=== PATIENT | female | born 1960 | race Caucasian/White ===

== ENCOUNTER 2017-07-26 12:45 | Inpatient (IN) | payer MEDICAID, OTHER ==
[2017-07-26] MEDS: LORazepam 1 MG TAB PO (13:24)
[2017-07-26 14:14] LABS: AMPHETAMINES LEVEL URINE NEGATIVE (NEGATIVE); BARBITURATES URINE NEGATIVE (NEGATIVE); BENZODIAZEPINES URINE NEGATIVE (NEGATIVE); CANNABINOIDS URINE NEGATIVE (NEGATIVE); COCAINE METABOLITE URINE NEGATIVE (NEGATIVE); METHADONE URINE NEGATIVE (NEGATIVE); OPIATES URINE NEGATIVE (NEGATIVE); PHENCYCLIDINE URINE NEGATIVE (NEGATIVE)
[2017-07-26] MEDS: METOPROLOL TART 50 MG TAB PO (15:00)
[2017-07-26] MEDS: CHLORTHALIDONE 12.5MG PER 1/2 TABLET PO (15:13)
[2017-07-26 15:25] LABS: ACETAMINOPHEN LEVEL < 2.0 UG/ML (10.0-30.0); ALBUMIN 4.3 GM/DL (3.2-5.2); ALBUMIN/GLOBULIN RATIO 1.48 (1.00-1.93); ALKALINE PHOSPHATASE 97 U/L (45-117); ALT/SGPT 27 U/L (12-78); ANION GAP 10 MEQ/L (8-16); AST/SGOT 30 U/L (7-37); BILIRUBIN,DIRECT 0.2 MG/DL (0.0-0.2); BILIRUBIN,TOTAL 0.9 MG/DL (0.2-1.0); BLOOD UREA NITROGEN 27 MG/DL (7-18); CALCIUM LEVEL 8.7 MG/DL (8.5-10.1); CARBON DIOXIDE LEVEL 25 MEQ/L (21-32); CHLORIDE LEVEL 106 MEQ/L (98-107); CREATININE FOR GFR 0.87 MG/DL (0.55-1.30); GLOMERULAR FILTRATION RATE > 60.0 (>51); GLUCOSE, FASTING 91 MG/DL (70-100); POTASSIUM SERUM 4.1 MEQ/L (3.5-5.1); SALICYLATE LEVEL < 1.7 MG/DL (5.0-30.0); SODIUM LEVEL 141 MEQ/L (136-145); TOTAL PROTEIN 7.2 GM/DL (6.4-8.2)
[2017-07-26 15:29] LABS: ETHYL ALCOHOL (ETHANOL) < 0.003 % (0.000-0.010)
[2017-07-26 15:34] LABS: HEMATOCRIT 42.8 % (36.0-47.0); HEMOGLOBIN 14.6 g/dl (12.0-16.0); MEAN CORPUSCULAR HEMOGLOBIN 30.3 pg (27.0-33.0); MEAN CORPUSCULAR HGB CONC 34.1 g/dl (32.0-36.5); MEAN CORPUSCULAR VOLUME 88.8 fl (80.0-96.0); PLATELET COUNT, AUTOMATED 212 10^3/uL (150-450); RED BLOOD COUNT 4.82 10^6/uL (4.00-5.40); RED CELL DISTRIBUTION WIDTH 12.7 % (11.5-14.5); WHITE BLOOD COUNT 13.4 10^3/uL (4.0-10.0)
[2017-07-26] MEDS: ACETAMINOPHEN TAB 650MG DOSE (2X325MG) PO (17:20)
[2017-07-26] MEDS ORDERED: MOM 30ML SUSPENSION UDC PO (17:30)
[2017-07-26] MEDS ORDERED: MAALOX 30 ML SUSP *UDC PO (17:30)
[2017-07-26] MEDS ORDERED: traZODone 50 MG TAB PO (17:30)
[2017-07-26] MEDS ORDERED: OLANZapine ORAL DISINTEGRATING TAB 5MG PO (17:30)
[2017-07-27] MEDS: ACETAMINOPHEN TAB 650MG DOSE (2X325MG) PO (06:54)
[2017-07-27 08:04] LABS: AMORPHOUS SEDIMENT RFX SMALL (NEGATIVE); KETONE, URINE AUTO RFX 1+ mg/dL (NEGATIVE); MUCUS, URINE RFX MODERATE (NEGATIVE); NITRITE, URINE AUTO RFX NEGATIVE (NEGATIVE); RBC, URINE AUTO RFX 32 /HPF (0-3); SPECIFIC GRAVITY UR AUTO RFX 1.017 (1.002-1.035); SQUAM EPITHELIAL CELL UR AURFX 2 /HPF (0-6); TRANSITIONAL EPITHELIAL AU RFX 1 /HPF
[2017-07-27 08:21] LABS: LEUKOCYTE ESTERASE UR AUTO RFX 2+ (NEGATIVE); WBC, URINE AUTO RFX 70 /HPF (0-3)
[2017-07-27] MEDS: SERTRALINE HCL 25 MG TABLET PO (13:32)
[2017-07-27] MEDS: AUGMENTIN 875 MG TAB PO (22:44)
[2017-07-28 06:57] LABS: BASO % 0.3 % (0.0-1.0); EOS % 0.6 % (0.0-3.0); HEMATOCRIT 38.1 % (36.0-47.0); HEMOGLOBIN 12.8 g/dl (12.0-16.0); IMMATURE GRANULOCYTE % 0.5 % (0-3.0); LYMPH # 1.7 10^3/uL (1.5-4.5); LYMPH % 27.4 % (24.0-44.0); MEAN CORPUSCULAR HGB CONC 33.6 g/dl (32.0-36.5); MEAN CORPUSCULAR VOLUME 89.4 fl (80.0-96.0); MONO # 0.6 10^3/uL (0.0-0.8); MONO % 9.3 % (0.0-5.0); NEUTROPHILS # 3.8 10^3/uL (1.8-7.7); NEUTROPHILS % 61.9 % (36.0-66.0); PLATELET COUNT, AUTOMATED 166 10^3/uL (150-450); RED BLOOD COUNT 4.26 10^6/uL (4.00-5.40); WHITE BLOOD COUNT 6.2 10^3/uL (4.0-10.0)
[2017-07-28 07:13] LABS: ALBUMIN 3.4 GM/DL (3.2-5.2); ALKALINE PHOSPHATASE 77 U/L (45-117); ALT/SGPT 33 U/L (12-78); ANION GAP 7 MEQ/L (8-16); AST/SGOT 35 U/L (7-37); BILIRUBIN,TOTAL 0.7 MG/DL (0.2-1.0); BLOOD UREA NITROGEN 21 MG/DL (7-18); CALCIUM LEVEL 8.3 MG/DL (8.5-10.1); CARBON DIOXIDE LEVEL 28 MEQ/L (21-32); CHLORIDE LEVEL 106 MEQ/L (98-107); GLOMERULAR FILTRATION RATE > 60.0 (>51); GLUCOSE, FASTING 96 MG/DL (70-100); POTASSIUM SERUM 3.8 MEQ/L (3.5-5.1); SODIUM LEVEL 141 MEQ/L (136-145); TOTAL PROTEIN 6.5 GM/DL (6.4-8.2)
[2017-07-28] MEDS: SERTRALINE HCL 25 MG TABLET PO (08:19)
[2017-07-28] MEDS: AUGMENTIN 875 MG TAB PO ×2 (08:19→21:42)
[2017-07-29] MEDS: SERTRALINE HCL 50 MG TAB PO (08:40)
[2017-07-29] MEDS: AUGMENTIN 875 MG TAB PO ×2 (08:40→21:30)
[2017-07-29] MEDS: guaiFENesin SYRUP 200 MG/10 ML UDC PO (13:25)
[2017-07-30] MEDS: SERTRALINE HCL 50 MG TAB PO (08:18)
[2017-07-30] MEDS: AUGMENTIN 875 MG TAB PO ×2 (08:18→21:09)
[2017-07-31] MEDS: AUGMENTIN 875 MG TAB PO (08:29)
[2017-07-31] MEDS: SERTRALINE HCL 50 MG TAB PO (08:29)
== END 2017-07-31 13:45 | disposition home or self-care (01) | DRG 881 ==
LOC: M ED 12:45 → M ED INP 17:20 → M PSY 18:10
DX: F32.9 Major depressive disorder, single episode, unspecified (principal); J20.9 Acute bronchitis, unspecified

== ENCOUNTER → 2017-12-16 | Outpatient (REF) ==
[2017-12-18 08:11] LABS: RUBEOLA IgG ANTIBODY 49.2 AU/mL (Immune >29.9)
== END ==
LOC: M LAB 15:16
DX: Z00.00 Encounter for general adult medical examination without abnormal findings (principal)

== ENCOUNTER → 2017-12-25 | Outpatient (REF) | payer MEDICAID, OTHER ==
[2017-12-25 13:43] LABS: ANION GAP 2 MEQ/L (8-16); BLOOD UREA NITROGEN 17 MG/DL (7-18); CALCIUM LEVEL 9.1 MG/DL (8.5-10.1); CARBON DIOXIDE LEVEL 32 MEQ/L (21-32); CHLORIDE LEVEL 106 MEQ/L (98-107); CREATININE FOR GFR 1.04 MG/DL (0.55-1.30); GLOMERULAR FILTRATION RATE 58.4 (>51); GLUCOSE, FASTING 66 MG/DL (70-100); POTASSIUM SERUM 4.9 MEQ/L (3.5-5.1); SODIUM LEVEL 140 MEQ/L (136-145)
== END ==
LOC: M LABDRWAD 12:02
DX: I10 Essential (primary) hypertension (principal)
CPT/HCPCS: 80048

== ENCOUNTER → 2019-08-03 | Outpatient (CLI) | payer BC ==
[~2019-08-03] MED LIST: ACET1TAB55 PO; ACET300T PO; ACET500C PO; AMOX875T2 PO; BACT800T5 PO; CIPR-249 PO; COLA100C5 PO; PERC5TAB12 PO; PYRI200T2 PO; SERT-141 PO
--- NOTE | 2019-08-03 08:32 | REP ---
CT ABDOMEN AND PELVIS WITHOUT IV OR ORAL CONTRAST: HISTORY: Calculus of kidney. Comparison CT study December 25, 2015. CT FINDINGS: Preliminary digital triage registered nurse radiograph is unremarkable. The lung bases are clear on axial CT images. The liver and the spleen are normal in size, homogeneous in texture. No abnormal adrenal lesion is seen. No abnormality is noted in the gallbladder or the pancreas. There is a cyst in the upper pole right kidney which measures 2.7 cm in diameter. This is larger than on previous scan. No renal mass lesion is observed. There are numerous bilateral intrarenal calculi. There is no evidence of hydronephrosis on either side. The largest calculus in the right kidney is in the lower pole measuring 7 mm. This is larger than on previous study. The largest calculus in the left kidney is at the mid pole level. This measures 7 mm also. This calculus is larger than previous study as well. No ureteral calculus is observed. No bladder calculus is seen. Uterus is surgically absent. The appendix appears to be surgically absent as well as there is a suture line along the cecum although the patient's historical questionnaire does not attest to this. No abdominal wall defect is seen. No bony destructive lesion is seen. IMPRESSION: Bilateral intrarenal nephrolithiasis. 2.7 cm cyst upper pole right kidney. No acute intra-abdominal abnormality. Electronically Signed by Masoud Cross MD 08/03/2019 09:26 A
== END ==
LOC: M RAD 07:18
PROVIDERS: ATTEND Nurse Practitioner Family
DX: N20.0 Calculus of kidney (principal)

== ENCOUNTER → 2019-08-04 | Outpatient (CLI) | payer BC ==
--- NOTE | 2019-08-04 14:20 | REPMRS ---
Patient History The patient states she had a clinical breast exam in July 2019. Family history of unknown cancer at age 60 in father. Benign excisional biopsy of the right breast. Took hormonal contraceptives for 15 years. 3D TOMOSYNTHESIS WAS PERFORMED. [facility]%. Digital Woman Screen Mammo: August 04, 2019 - Exam #: [id number] Bilateral CC and MLO view(s) were taken. Technologist: RT Mellissa Prior study comparison: March 02, 2014, bilateral bilat screen digital mammo, performed at [facility] ([place]). July 13, 2012, bilateral bilat screen digital mammo, performed at [facility] ([facility]). FINDINGS: The breast tissue is heterogeneously dense. This may lower the sensitivity of mammography. There has been no change in the appearance of the mammogram from the prior studies. There is a moderate amount of residual fibroglandular tissue which is fairly symmetric. There is no interval development of dominant mass, areas of architectural distortion, or clustered microcalcification typical of malignancy. Assessment: BI-RADS/ACR category 1 mammogram. Negative Mammogram. Recommendation Routine screening mammogram in 1 year (for women over age 40). This mammogram was interpreted with the aid of an FDA-approved computer-aided dectection system. Electronically Signed By: Pascual Oconnor MD 08/04/19 1208
== END ==
LOC: M WHC 12:46
PROVIDERS: ATTEND Internal Medicine
DX: Z12.31 Encounter for screening mammogram for malignant neoplasm of breast (principal)

== ENCOUNTER → 2019-08-11 | Outpatient (REF) | payer BC ==
[~2019-08-11] MED LIST changes: +AMLO5TAB6 PO; +BENA10TA PO
[2019-08-11 12:48] LABS: CALCIUM LEVEL 9.4 MG/DL (8.5-10.1); CREATININE FOR GFR 1.03 MG/DL (0.55-1.30); GLOMERULAR FILTRATION RATE 58.6 (>51); POTASSIUM SERUM 4.7 MEQ/L (3.5-5.1)
[2019-08-11 12:59] LABS: APPEARANCE, URINE CLEAR (CLEAR); BACTERIA, URINE AUTO NEGATIVE (NEGATIVE); BILIRUBIN, URINE AUTO NEGATIVE (NEGATIVE); BLOOD, URINE BLOOD 1+ (NEGATIVE); COLOR, URINE YELLOW (YELLOW); GLUCOSE, URINE (UA) AUTO NEGATIVE (NEGATIVE); KETONE, URINE AUTO NEGATIVE (NEGATIVE); LEUKOCYTE ESTERASE, URINE AUTO NEGATIVE (NEGATIVE); MUCUS, URINE SMALL (NEGATIVE); NITRITE, URINE AUTO NEGATIVE (NEGATIVE); PROTEIN, URINE AUTO NEGATIVE (NEGATIVE); RBC, URINE AUTO 18 /HPF (0-3); SPECIFIC GRAVITY URINE AUTO 1.012 (1.002-1.035); SQUAMOUS EPITHELIAL CELL UR AU 0 /HPF (0-6); UROBILINOGEN, URINE AUTO 0.2 mg/dL (0.0-2.0); WBC, URINE AUTO 1 /HPF (0-3)
[2019-08-11 13:03] LABS: HEMATOCRIT 44.5 % (36.0-47.0); HEMOGLOBIN 14.3 g/dl (12.0-15.5); MEAN CORPUSCULAR HEMOGLOBIN 30.2 pg (27.0-33.0); MEAN CORPUSCULAR HGB CONC 32.1 g/dl (32.0-36.5); MEAN CORPUSCULAR VOLUME 93.9 fl (80.0-96.0); RED BLOOD COUNT 4.74 10^6/uL (4.00-5.40); WHITE BLOOD COUNT 6.3 10^3/uL (4.0-10.0)
[2019-08-11 13:05] LABS: INR 1.02; PROTHROMBIN TIME 13.1 SECONDS (11.8-14.0)
[2019-08-11 13:06] LABS: PARTIAL THROMBOPLASTIN TIME 29.6 SECONDS (25.0-38.4)
== END ==
LOC: M SFHCADAM 08:32 → M LABSMT 08:32
PROVIDERS: ATTEND Nurse Practitioner Women's Health
DX: Z01.818 Encounter for other preprocedural examination (principal); N20.0 Calculus of kidney

== ENCOUNTER 2019-08-12 08:54 | Day surgery (SDC) | payer BC ==
[~2019-08-12] VITALS: Ht 160 cm; Wt 65.3 kg
[~2019-08-12 08:54] MED LIST changes: +LR 1,000 ML IV ONE; +ceFAZolin SOD 2 GM in IV 1 EA IV ONE
[2019-08-12] MEDS ORDERED: propofoL 500 MG/50 ML VIAL As Ordered ONE (10:26)
[2019-08-12] MEDS ORDERED: LIDOCAINE 2% INJ 100 MG/5 ML SDV (FOR ANES.) As Ordered ONE (10:26)
--- NOTE | 2019-08-12 11:25 | REP ---
KUB ABDOMEN AND PELVIS: Two KUB films of the abdomen and pelvis are performed. Bowel gas pattern is normal. There are multiple subcentimeter calcifications overlying both renal shadows consistent with multiple bilateral intrarenal calculi. Largest on the left is 7 mm in the mid aspect of the left kidney. Largest on the right is in the lower pole approximately 6 mm in diameter. There is partial sacralization of the L5 indicating transitional vertebral body. IMPRESSION: Multiple subcentimeter intrarenal calculi bilaterally. Electronically Signed by Pascual Oconnor MD 08/12/2019 04:51 P
[2019-08-12] MEDS ORDERED: propofoL 200 MG/20 ML VIAL As Ordered ONE (12:03)
[2019-08-12 13:30] VITALS: BP 136/70
--- NOTE | 2019-08-12 14:13 | RO ---
DATE OF PROCEDURE: 08/12/2019 PREPROCEDURE DIAGNOSIS: Bilateral kidney stones. POSTPROCEDURE DIAGNOSIS: Bilateral kidney stones. PROCEDURE: Bilateral extracorporeal shockwave lithotripsy. SURGEON: Dr. Alon Soto SCRAP PICKER: None. ANESTHESIA: Monitored anesthesia care (MAC). OPERATIVE INDICATIONS: This is a 59-year-old female who was found to have multiple bilateral non-obstructing kidney stones. She was brought to the operating room today for treatment. DESCRIPTION OF PROCEDURE: The patient was brought to the operating room and MAC anesthesia was administered. Prophylactic antibiotics were infused. She was then placed in the supine position in preparation for right sided extracorporeal shockwave lithotripsy first. Fluoroscopy was utilized to monitor the stone position and fragmentation throughout the procedure. Shockwaves were then delivered to the largest of the right sided kidney stones ungated. There were no arrhythmias. The stones did appear to fragment well. After 2500 shocks, the patient was then repositioned for a left sided extracorporeal shockwave lithotripsy. Of note, the patient had at 4 or 5 stones in the left side with the largest ones in the mid and lower pole calyces. These stones were also targeted using fluoroscopy. Shockwaves were then delivered to them ungated. After a total of 2500 shocks were delivered, this marked the conclusion of the procedure. The patient was then awakened from anesthesia and transported to the recovery room in stable condition. Estimated blood loss 0 mL. Complications: None. Specimens: None. Plan: The patient will followup in the clinic in a few weeks with imaging prior to assess for residual stone burden.
== END 2019-08-12 13:44 | disposition home or self-care (01) ==
LOC: M SDC 08:54
PROVIDERS: ATTEND Urology
DX: N20.0 Calculus of kidney (principal); I10 Essential (primary) hypertension; Z79.899 Other long term (current) drug therapy; Z87.442 Personal history of urinary calculi
CPT/HCPCS: 50590; 74018; J0690

== ENCOUNTER → 2019-09-08 | Outpatient (CLI) | payer BC ==
[~2019-09-08] MED LIST changes: -LR 1,000 ML IV ONE; -ceFAZolin SOD 2 GM in IV 1 EA IV ONE
--- NOTE | 2019-09-08 17:09 | REP ---
Clinical: Kidney stone. Technique: Single supine view of the abdomen and pelvis. Comparison: 08/12/2019. Findings: Bilateral intrarenal calculi measuring up to approximately 4 mm are suggested. No obvious ureteral or bladder calculi noted. Bowel gas pattern is nonspecific. No organomegaly. No foreign body. Skeletal structures are intact. Impression: Bilateral nephroliths measuring up to approximately 4 mm. Electronically Signed by Juan Su MD 09/08/2019 05:00 P
== END ==
LOC: M RAD 16:20
PROVIDERS: ATTEND Nurse Practitioner Women's Health
DX: N20.0 Calculus of kidney (principal)

== ENCOUNTER → 2019-09-09 | Outpatient (REF) | payer BC | LOC: M SMT 16:31 | PROVIDERS: ATTEND Nurse Practitioner Family | DX: N20.0 Calculus of kidney (principal) ==

== ENCOUNTER → 2020-03-09 | Outpatient (CLI) | payer BC ==
[~2020-03-09] MED LIST changes: +AMLO1TAB24 PO; -AMLO5TAB6 PO
--- NOTE | 2020-03-09 16:59 | REP ---
INDICATION: CALCULUS OF KIDNEY COMPARISON: 09/08/2019 TECHNIQUE: Supine view of the abdomen and pelvis. FINDINGS: Punctate bilateral intrarenal calculi form (left greater than right) are again suggested and similar to prior examination. Bowel gas pattern is nonspecific. No organomegaly. No foreign body. Skeletal structures demonstrate age-related changes. IMPRESSION: Suggest small multiple bilateral nephroliths <Electronically signed by Juan Su > 03/09/20 0359
== END ==
LOC: M RAD 16:26
PROVIDERS: ATTEND Nurse Practitioner Family
DX: N20.0 Calculus of kidney (principal)

== ENCOUNTER → 2021-10-08 | Outpatient (CLI) | payer BC | LOC: M WHC 08:03 | PROVIDERS: ATTEND Internal Medicine | DX: Z12.31 Encounter for screening mammogram for malignant neoplasm of breast (principal); Z78.0 Asymptomatic menopausal state ==

== ENCOUNTER → 2022-10-15 | Outpatient (CLI) | payer BC | LOC: M PLAIMG 10:39 | PROVIDERS: ATTEND Internal Medicine Nephrology | DX: N20.0 Calculus of kidney (principal) ==

== ENCOUNTER → 2023-09-23 | Outpatient (CLI) | payer BC | LOC: M WHC 12:51 | PROVIDERS: ATTEND Internal Medicine | DX: Z12.31 Encounter for screening mammogram for malignant neoplasm of breast (principal) ==

== ENCOUNTER 2023-12-10 08:18 | Day surgery (SDC) | payer BC ==
[~2023-12-10] VITALS: Ht 160 cm; Wt 76.5 kg
[~2023-12-10 08:18] MED LIST changes: +CARV6.25 PO; +LIDOCAINE 3.5 % 1ML OPHTH TOPICAL GEL OU ONE; +MIDAZOLAM INJ 2MG/2ML VIAL As Ordered ONE; +PHENYLEPHRINE 10% OPHTH SOL 5ML OD PRN; +POTA10808 PO; +fentaNYL 100 MCG/2 ML INJECTION As Ordered ONE
[2023-12-10] MEDS: PHENYLEPHRINE 2.5% OPHTH SOL 2ML OD SCH (08:47)
[2023-12-10] MEDS: OFLOXACIN 0.3 % (OCUFLOX) OPTH SOL 5ML OD ONE (08:47)
[2023-12-10] MEDS: TROPICAMIDE 1% OPHTH SOLN 15ML OD SCH (08:47)
[2023-12-10] MEDS: ATROPINE SULFATE 1% OPHTH SOLN 2ML BTL OD SCH (08:47)
[2023-12-10] MEDS: LIDOCAINE 1% SDV 5ML VIAL As Ordered ONE (10:18)
[2023-12-10] MEDS: CEFUROXIME 1MG/0.1ML INTRACAMERAL INJ As Ordered ONE (10:18)
[2023-12-10] MEDS: BSS IRRIG/VANCO(10MG)/TOBRA(5MG)/EPINEPH(1:1000-0.5CC)500ML BAG-ORONLY As Ordered ONE (10:19)
[2023-12-10 10:37] VITALS: BP 99/57; TEMP 97.3; O2SAT 94
== END 2023-12-10 11:06 | disposition home or self-care (01) ==
LOC: M SDC 08:18
PROVIDERS: ATTEND Ophthalmology
DX: H25.11 Age-related nuclear cataract, right eye (principal); I10 Essential (primary) hypertension; K21.9 Gastro-esophageal reflux disease without esophagitis; Z79.899 Other long term (current) drug therapy
CPT/HCPCS: 66984; 92015; J0697; J2250; J3010; V2788

== ENCOUNTER 2023-12-17 07:39 | Day surgery (SDC) | payer BC ==
[~2023-12-17] VITALS: Ht 160 cm; Wt 76.1 kg
[~2023-12-17 07:39] MED LIST changes: -LIDOCAINE 3.5 % 1ML OPHTH TOPICAL GEL OU ONE; -MIDAZOLAM INJ 2MG/2ML VIAL As Ordered ONE; -PHENYLEPHRINE 10% OPHTH SOL 5ML OD PRN; +PHENYLEPHRINE 10% OPHTH SOL 5ML OS PRN; -fentaNYL 100 MCG/2 ML INJECTION As Ordered ONE
[2023-12-17] MEDS: ATROPINE SULFATE 1% OPHTH SOLN 2ML BTL OS SCH (09:15)
[2023-12-17] MEDS: LIDOCAINE 3.5 % 1ML OPHTH TOPICAL GEL OU ONE (09:15)
[2023-12-17] MEDS: TROPICAMIDE 1% OPHTH SOLN 15ML OS SCH (09:15)
[2023-12-17] MEDS: PHENYLEPHRINE 2.5% OPHTH SOL 2ML OS SCH (09:15)
[2023-12-17] MEDS: OFLOXACIN 0.3 % (OCUFLOX) OPTH SOL 5ML OS ONE (09:15)
[2023-12-17] MEDS ORDERED: MIDAZOLAM INJ 2MG/2ML VIAL As Ordered ONE (09:56)
[2023-12-17] MEDS ORDERED: fentaNYL 100 MCG/2 ML INJECTION As Ordered ONE (09:56)
[2023-12-17] MEDS: BSS IRRIG/VANCO(10MG)/TOBRA(5MG)/EPINEPH(1:1000-0.5CC)500ML BAG-ORONLY As Ordered ONE (10:07)
[2023-12-17] MEDS: CEFUROXIME 1MG/0.1ML INTRACAMERAL INJ As Ordered ONE (10:07)
[2023-12-17] MEDS: LIDOCAINE 1% SDV 5ML VIAL As Ordered ONE (10:07)
[2023-12-17 10:24] VITALS: BP 154/81; TEMP 97.2; O2SAT 96
== END 2023-12-17 10:37 | disposition home or self-care (01) ==
LOC: M SDC 07:39
PROVIDERS: ATTEND Ophthalmology
DX: H25.12 Age-related nuclear cataract, left eye (principal); I10 Essential (primary) hypertension; K21.9 Gastro-esophageal reflux disease without esophagitis; Z79.899 Other long term (current) drug therapy
CPT/HCPCS: 66984; 92015; J0697; J2250; J3010; V2788

== ENCOUNTER → 2024-03-30 | Outpatient (CLI) | payer BC ==
[~2024-03-30] MED LIST changes: -PHENYLEPHRINE 10% OPHTH SOL 5ML OS PRN
== END ==
LOC: M WHC 07:50
PROVIDERS: ATTEND Internal Medicine
DX: M81.0 Age-related osteoporosis without current pathological fracture (principal)

== ENCOUNTER → 2024-07-05 | Outpatient (REF) | payer BC ==
[~2024-07-05] MED LIST changes: -POTA10808 PO; +POTA10809 PO
== END ==
LOC: M LAB REF 16:05
PROVIDERS: ATTEND Nurse Practitioner Adult Health
DX: N18.31 Chronic kidney disease, stage 3a (principal); M85.9 Disorder of bone density and structure, unspecified

== ENCOUNTER → 2024-11-30 | Outpatient (REF) | payer BC | LOC: M LAB REF 17:02 | PROVIDERS: ATTEND Internal Medicine Nephrology | DX: N39.0 Urinary tract infection, site not specified (principal) ==

== ENCOUNTER 2025-02-18 10:14 | Day surgery (SDC) | payer BC ==
[~2025-02-18] VITALS: Ht 160 cm; Wt 78.5 kg
[2025-02-18] MEDS: OXYMETAZOLINE 0.05% NASAL SPRAY As Ordered ONE (08:27)
[~2025-02-18 10:14] MED LIST changes: +ACET32TAB PO; +IBUP200C29 PO; +LIDOCAINE 2% 100 MG/5 ML SDV (FOR ANES.) As Ordered ONE; +ONDANSETRON 4MG 2ML VIAL As Ordered ONE; +ROCURONIUM BROMIDE 50MG/5ML VIAL As Ordered ONE; +SUGAMMADEX SODIUM 500 MG/5 ML VIAL As Ordered ONE; +dexAMETHasone 4 MG/ML 1 ML VIAL As Ordered ONE; +dexAMETHasone 4 MG/ML 1 ML VIAL IV ONE
[2025-02-18] MEDS ORDERED: MIDAZOLAM INJ 2 MG/2 ML VIAL As Ordered ONE (11:20)
[2025-02-18] MEDS: AMPICILLIN SOD/SULBACTAM SOD 3 GM in D5W MINI-BAG 100 ML IV ONE (12:25)
[2025-02-18] MEDS ORDERED: ACETAMINOPHEN 1000MG/100ML IV BAG As Ordered ONE (12:26)
[2025-02-18] MEDS: CHLORHEXIDINE GLUCONATE 0.12% 15 ML UDC As Ordered ONE (12:29)
[2025-02-18] MEDS ORDERED: KETOROLAC 30 MG/ML 1 ML VIAL As Ordered ONE (12:34)
[2025-02-18] MEDS ORDERED: MORPHINE 4 MG/ML 1 ML VIAL IV PRN (13:05)
[2025-02-18] MEDS ORDERED: ONDANSETRON 4MG 2ML VIAL IV PRN (13:05)
[2025-02-18 14:50] VITALS: BP 124/60; TEMP 97.4; O2SAT 94
== END 2025-02-18 15:00 | disposition home or self-care (01) ==
LOC: M SDC 10:14
PROVIDERS: ATTEND Dentist
DX: K02.9 Dental caries, unspecified (principal); I10 Essential (primary) hypertension; K21.9 Gastro-esophageal reflux disease without esophagitis; Z79.899 Other long term (current) drug therapy
CPT/HCPCS: 88300; D7210; J0131; J0295; J1100; J1885; J2250; J2405; J3010